=== PATIENT | female | born 1975 | race Caucasian/White ===

== ENCOUNTER 2021-04-07 08:20 | Outpatient (CLI) | payer BC | END 2021-04-07 08:21 | disposition home or self-care (01) | LOC: CSHULT 08:20 | PROVIDERS: ATTEND Internal Medicine Gastroenterology | DX: K59.09 Other constipation (principal); R14.0 Abdominal distension (gaseous); R13.10 Dysphagia, unspecified; F41.1 Generalized anxiety disorder; M06.80 Other specified rheumatoid arthritis, unspecified site; N28.1 Cyst of kidney, acquired; K76.89 Other specified diseases of liver | CPT/HCPCS: 93975 ==